=== PATIENT | male | born 1970 | race Caucasian/White ===

== ENCOUNTER 2018-10-30 09:27 | Day surgery (SDC) | payer BC ==
[2018-10-30] MEDS ORDERED: BUPIVACAINE 0.25%/EPI (SDV) 30 ML INJ (11:46)
[2018-10-30] MEDS ORDERED: LIDOCAINE 1%/EPI 30 ML INJ (11:46)
[2018-10-30] MEDS: BUPIVACAINE 0.25%/EPI (SDV) 30 ML INJ INJ (11:53)
[2018-10-30] MEDS: LIDOCAINE 1%/EPI 30 ML INJ INJ (11:53)
[2018-10-30] MEDS ORDERED: CEFAZOLIN 1 GM INJ (11:55)
[2018-10-30] MEDS ORDERED: ROCURONIUM 50 MG INJ (11:55)
[2018-10-30] MEDS ORDERED: LIDOCAINE 2% (SDV) 5 ML INJ (12:09)
[2018-10-30] MEDS ORDERED: SUCCINYLCHOLINE CHLORIDE 100 MG/5 ML SYG IV (12:09)
[2018-10-30] MEDS ORDERED: PROPOFOL 40 ML (12:09)
[2018-10-30] MEDS ORDERED: ONDANSETRON 4 MG INJ (12:38)
[2018-10-30] MEDS ORDERED: KETOROLAC 30 MG INJ (12:39)
[2018-10-30] MEDS ORDERED: EPHEDrine 25 MG/5 ML SYG (13:02)
[2018-10-30] MEDS ORDERED: GLYCOPYRROLATE 0.4 MG INJ (13:06)
[2018-10-30] MEDS ORDERED: NEOSTIGMINE 3 MG/3 ML SYRINGE (13:06)
[2018-10-30] MEDS ORDERED: HYDROGEN PEROXIDE 118 ML TOP (13:30)
[2018-10-30] MEDS ORDERED: LACTATED RINGER'S 1,000 ML IV (13:52)
[2018-10-30] MEDS ORDERED: HYDROCODONE/APAP (5/325) TAB PO ×2 (14:00)
[2018-10-30] MEDS ORDERED: morphine 2 MG INJ IV (14:00)
[2018-10-30] MEDS ORDERED: OXYCODONE/ACETAMINOPHEN (5/325) TAB PO ×2 (14:00)
[2018-10-30] MEDS ORDERED: MEPERIDINE 25 MG INJ IV (14:00)
[2018-10-30] MEDS ORDERED: FENTAnyl 50 MCG/ML VIAL IV ×2 (14:00)
[2018-10-30] MEDS ORDERED: ONDANSETRON 4 MG INJ IV (14:00)
[2018-10-30] MEDS ORDERED: LABETALOL HCL 20MG INJ IV (14:00)
== END 2018-10-30 15:30 | disposition home or self-care (01) ==
LOC: SDS 09:27
DX: E11.9 Type 2 diabetes mellitus without complications (principal); E78.5 Hyperlipidemia, unspecified; F17.200 Nicotine dependence, unspecified, uncomplicated; Z79.84 Long term (current) use of oral hypoglycemic drugs
CPT/HCPCS: 11772; 82962; 87070; 87075; 87102; 88304